=== PATIENT | female | born 1935 | race Caucasian/White ===

== ENCOUNTER 2016-10-13 16:49 | Emergency (ER) | payer OTHER ==
[~2016-10-13] VITALS: Ht 157.5 cm; Wt 48.6 kg
[~2016-10-13 16:49] MED LIST: DIOV160T60 PO; METO50TA PO; SYNT88TA PO
[2016-10-13 16:58] VITALS: BP 186/75; PULSE 61; RESP 16; TEMP 98.6; O2SAT 100
[2016-10-13] MEDS ORDERED: PAIN MED (17:12)
[2016-10-13] MEDS ORDERED: DIOV40TA PO (17:12)
[2016-10-13] MEDS ORDERED: NAUSEA MED (17:12)
[2016-10-13] MEDS ORDERED: SODIUM CHLOR 0.9% 1000 ML INJ 1,000 ML IV SCH (17:35)
--- NOTE | 2016-10-13 17:42 | PD ---
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 Ge, here today for evaluation of abdominal pain, abdominal distention, nausea, feeling bloated, decreased appetite. Symptoms started last night. She had one episode of vomiting last night. She cannot recall when her last bowel movement was. No history of abdominal surgeries. No fevers. No urinary symptoms. Pain is mainly epigastric, moderate, intermittently worse at times, no modifying factors. PFSH Past Medical History Hx Anticoagulant Therapy: Yes (81 MG ASA) Cancer: Yes (liver) Cardiovascular Problems: Yes (HTN) Chemotherapy: Yes (LIVER CA 2 WEEKS ) Diabetes: No Endocrine: Yes Genitourinary: Yes Hepatitis: No Hiatal Hernia: No Hypertension: Yes Immune Disorder: No Musculoskeletal: No Neurologic: No Psychiatric: No Reproductive: No Respiratory: No Thyroid Disease: Yes ?: Not Past Surgical History Abdominal Surgery: No AICD: No Cardiac Surgery: No Ear Surgery: No Endocrine Surgery: No Eye Surgery: No Genitourinary Surgery: No Gynecologic Surgery: No Joint Replacement: No Oral Surgery: No Pacemaker: No Thoracic Surgery: No Social History Alcohol Use: No Tobacco Use: No Substance Use: No Allergies-Medications (Allergen,Severity, Reaction): Coded Allergies: No Known Allergies (Unverified , 10/13/16) Reported Meds & Prescriptions Reported Meds & Active Scripts Active Reported [Pain Med] Unknown Dose [Nausea Med] Unknown Dose Diovan (Valsartan) 40 Mg Tab Unknown Dose PO BID Review of Systems Except as stated in HPI: all other systems reviewed are Neg Physical Exam Narrative GENERAL: Well-developed, well-nourished, comfortable, no acute distress. SKIN: Warm and dry. No rash. HEAD: Atraumatic. Normocephalic. EYES: Pupils equal and round. No scleral icterus. No injection or drainage. ENT: Mucous membranes pink and moist. CARDIOVASCULAR: Regular rate and rhythm. RESPIRATORY: No accessory muscle use. Clear to auscultation. Breath sounds equal bilaterally. GASTROINTESTINAL: Abdomen soft, nondistended. Mild epigastric tenderness without rebound or guarding. Rest of abdomen is soft and nontender. Normal bowel sounds. No hernias. MUSCULOSKELETAL: No obvious deformities. No clubbing. No cyanosis. No edema. NEUROLOGICAL: Awake and alert. No obvious cranial nerve deficits. Motor grossly within normal limits. Normal speech. PSYCHIATRIC: Appropriate mood and affect; insight and judgment normal. Data Data Last Documented VS Vital Signs Date Time Temp Pulse Resp B/P Pulse Ox O2 Delivery O2 Flow Rate FiO2 10/13/16 19:17 92 20 197/58 99 10/13/16 16:58 98.6 Orders Complete Blood Count With Diff (10/13/16 17:35) Comprehensive Metabolic Panel (10/13/16 17:35) Lipase (10/13/16 17:35) Lactic Acid (10/13/16 17:35) Prothrombin Time / Inr (Pt) (10/13/16 17:35) Act Partial Throm Time (Ptt) (10/13/16 17:35) Urinalysis - C+S If Indicated (10/13/16 17:35) Ct Abd/Pel W Iv Contrast(Rout) (10/13/16 17:35) Iv Access Insert/Monitor (10/13/16 17:35) Ecg Monitoring (10/13/16 17:35) Oximetry (10/13/16 17:35) Morphine Inj (Morphine Inj) (10/13/16 17:45) Sodium Chlor 0.9% 1000 Ml Inj (Ns 1000 M (10/13/16 17:35) Sodium Chloride 0.9% Flush (Ns Flush) (10/13/16 17:45) Electrocardiogram (10/13/16 17:35) Ckmb (Isoenzyme) Profile (10/13/16 17:35) Troponin I (10/13/16 17:35) Ondansetron Inj (Zofran Inj) (10/13/16 17:45) Pantoprazole Inj (Protonix Inj) (10/13/16 19:15) Al-Mag Hy-Si 40-40-4 Mg/Ml Liq (Mag-Al P (10/13/16 19:15) Lidocaine 2% Viscous (Xylocaine 2% Visco (10/13/16 19:15) Labs Laboratory Tests Test 10/13/16 10/13/16 17:55 18:51 White Blood Count 8.9 TH/MM3 Red Blood Count 3.53 MIL/MM3 Hemoglobin 10.4 GM/DL Hematocrit 32.2 % Mean Corpuscular Volume 91.2 FL Mean Corpuscular Hemoglobin 29.5 PG Mean Corpuscular Hemoglobin 32.3 % Concent Red Cell Distribution Width 13.3 % Platelet Count 95 TH/MM3 Mean Platelet Volume 9.0 FL Neutrophils (%) (Auto) 76.5 % Lymphocytes (%) (Auto) 19.5 % Monocytes (%) (Auto) 1.3 % Eosinophils (%) (Auto) 1.1 % Basophils (%) (Auto) 1.6 % Neutrophils # (Auto) 6.9 TH/MM3 Lymphocytes # (Auto) 1.7 TH/MM3 Monocytes # (Auto) 0.1 TH/MM3 Eosinophils # (Auto) 0.1 TH/MM3 Basophils # (Auto) 0.1 TH/MM3 CBC Comment AUTO DIFF Differential Comment AUTO DIFF CONFIRMED Platelet Estimate LOW Platelet Morphology Comment NORMAL Prothrombin Time 13.4 SEC Prothromb Time International 1.2 RATIO Ratio Activated Partial 25.0 SEC Thromboplast Time Lactic Acid Level 1.2 mmol/L Sodium Level 140 MEQ/L Potassium Level 4.0 MEQ/L Chloride Level 106 MEQ/L [facility] Medical Decision Making Medical Screen Exam Complete: Yes Emergency Medical Condition: Yes Medical Record Reviewed: Yes Interpretation(s) EKG: Sinus, rate 69, normal axis, normal intervals, Q waves in septal leads, no acute ischemic abnormality. Differential Diagnosis Gastritis, peptic ulcer disease, pancreatitis, hepatobiliary disease, progression of metastatic cancer, ACS, bowel obstruction, constipation Narrative Course Vital signs reviewed. CBC shows WBC 8.9, hemoglobin 10.4, hematocrit 32.2, platelets 95. Patient was given a dose of morphine and states she is feeling a lot better. Her abdominal exam is benign. There are no peritoneal signs. She would like to go home. She wants to leave AMA. She does not want to wait for the rest of her labs or CT. She understands that there are risks of leaving AMA including but not limited to and permanent disability. She has the capacity to make this decision. She was told that she can return to the emergency department at any time and should return should she have worsening symptoms or any other concerns. PMD follow-up this week. AMA: The risks of leaving against medical advice without further evaluation treatment were discussed with the patient. These risks include cardiac dysfunction, cardiac dysrhythmia, possible heart attack, possible stroke or . The patient indicated understanding of these risks and appeared to have the capacity to make this decision. Diagnosis Primary Impression: Abdominal pain Qualified Code: R10.13 - Epigastric pain Additional Impression: Left against medical advice Referrals: Primary Care Physician 3 days Additional Instructions: Follow-up with your primary care physician in the next 1-2 days. Return to the emergency room if worsening symptoms or any other concerns. Disposition: 07 AGAINST MEDICAL ADVICE Condition: Stable Kun Mott MD Oct 13, 2016 17:42
[2016-10-13] MEDS ORDERED: MORPHINE SULFATE 4 MG/ML INJ IV PUSH ONE (17:45)
[2016-10-13] MEDS ORDERED: ONDANSETRON HCL 4 MG/2 ML VIAL IV PUSH ONE (17:45)
[2016-10-13] MEDS ORDERED: SODIUM CHLORIDE 0.9% FLUSH 5 ML FLUSH IVF PRN (17:45)
[2016-10-13 18:04] VITALS: O2SAT 97
[2016-10-13 18:10] LABS: AUTOMATED NEUTROPHIL # 6.9 TH/MM3 (1.8-7.7); BASOPHIL # 0.1 TH/MM3 (0-0.2); BASOPHIL % 1.6 % (0.0-2.0); EOSINOPHIL # 0.1 TH/MM3 (0-0.4); EOSINOPHIL % 1.1 % (0.0-4.0); HEMATOCRIT 32.2 % (35.0-46.0); LYMPH % 19.5 % (9.0-44.0); LYMPHOCYTE # 1.7 TH/MM3 (1.0-4.8); MEAN CELL VOLUME 91.2 FL (80.0-100.0); MEAN CORPUSCULAR HEMOGLOBIN 29.5 PG (27.0-34.0); MEAN CORPUSCULAR HGB CONC 32.3 % (32.0-36.0); MONO % 1.3 % (0.0-8.0); NEUT % 76.5 % (16.0-70.0); PLATELET COUNT 95 TH/MM3 (150-450); RED BLOOD COUNT 3.53 MIL/MM3 (4.00-5.30); RED CELL DISTRIBUTION WIDTH 13.3 % (11.6-17.2); WHITE BLOOD COUNT 8.9 TH/MM3 (4.0-11.0)
[2016-10-13 18:13] LABS: HEMO FLAGS AUTO DIFF
[2016-10-13 18:18] VITALS: BP 203/65; PULSE 62; RESP 20; O2SAT 96
[2016-10-13 18:26] LABS: INTERNATIONAL NORMALIZED RATIO 1.2 RATIO; PROTHROMBIN TIME - PATIENT 13.4 SEC (9.8-11.6)
[2016-10-13 18:32] LABS: PLATELET ESTIMATE SMEAR LOW (NORMAL); PLATELET MORPHOLOGY NORMAL (NORMAL); SCAN/DIFF AUTO DIFF CONFIRMED
[2016-10-13] MEDS ORDERED: LIDOCAINE VISCOUS 2% SOLN 15 ML UDC PO ONE (19:15)
[2016-10-13] MEDS ORDERED: ALUMINUM/MAGNESIUM/SIMETH 30 ML CUP PO ONE (19:15)
[2016-10-13] MEDS ORDERED: PANTOPRAZOLE SODIUM 40 MG VIAL IVP ONE (19:15)
[2016-10-13 19:17] VITALS: BP 197/58; PULSE 92; RESP 20; O2SAT 99
[2016-10-13 19:25] LABS: CHLORIDE 106 MEQ/L (98-107); SODIUM (NA) 140 MEQ/L (136-145)
[2016-10-13 19:30] LABS: ANION GAP 11 MEQ/L (5-15); BICARBONATE 23.2 MEQ/L (21.0-32.0); BLOOD UREA NITROGEN 26 MG/DL (7-18)
[2016-10-13 19:33] LABS: ALT (GPT) 27 U/L (10-53); AST (GOT) 39 U/L (15-37); GLOMERULAR FILTRATION RATE 64 ML/MIN (>89)
[2016-10-13 19:34] LABS: TOTAL BILIRUBIN ADULT 1.3 MG/DL (0.2-1.0)
[2016-10-13 19:35] LABS: ALKALINE PHOSPHATASE 153 U/L (45-117)
[2016-10-13 19:45] LABS: CREATINE KINASE 42 U/L (26-192)
--- NOTE | 2016-10-14 16:04 | EKG ---
Date Performed: 10/13/2016 Time Performed: 17:45:46 PTAGE: 81 years EKG: Sinus rhythm Possible septal infarct - age undetermined Clinical correlation is recommended Abnormal ECG NO PREVIOUS TRACING DOCTOR: Ben Jerome Interpretating Date/Time 10/14/2016 16:03:00
== END 2016-10-13 19:41 | disposition left against medical advice (07) ==
LOC: PHED 16:49
DX: R10.13 Epigastric pain (principal); C22.1 Intrahepatic bile duct carcinoma; I10 Essential (primary) hypertension; Z79.82 Long term (current) use of aspirin
CPT/HCPCS: 82550; 83605; 85025; 85610; 85730; 93005; 96361; 96374; 96375; 99284; C9113; J2270; J2405; J7030; 80053; 83690; 84484

== ENCOUNTER 2016-10-21 18:17 | Observation (INO) | payer OTHER, MEDICARE ==
[2016-10-21] VITALS (10 sets, daily range): BP systolic 139–219; BP diastolic 54–98; PULSE 85–112; RESP 16–19; TEMP 98.3–98.7; O2SAT 95–100
[~2016-10-21 18:17] MED LIST changes: -DIOV160T60 PO; +DIOV40TA PO; -METO50TA PO; +NAUSEA MED; +PAIN MED; -SYNT88TA PO
[2016-10-21] MEDS ORDERED: OXYC1CAP PO (18:53)
[2016-10-21] MEDS ORDERED: PROC10TA PO (18:53)
[2016-10-21] MEDS ORDERED: LEVO88TA2 PO (18:53)
[2016-10-21] MEDS ORDERED: DOCU100T9 PO (18:53)
[2016-10-21] MEDS ORDERED: OMEP20TA PO (18:53)
[2016-10-21] MEDS ORDERED: SODIUM CHLOR 0.9% 1000 ML INJ 1,000 ML IV SCH ×2 (19:09→21:00)
[2016-10-21] MEDS ORDERED: SODIUM CHLORIDE 0.9% FLUSH 5 ML FLUSH IVF PRN (19:15)
--- NOTE | 2016-10-21 19:18 | PD ---
HPI Chief Complaint: Altered Mental Status Time Seen by Provider: 19:04 Travel History International Travel<30 days: No Contact w/Intl Traveler<30days: No Traveled to known affect area: No History of Present Illness HPI The patient is an 81-year-old female that was brought in because of altered mental status. She is generally weak and confused and has not been eating today. She does have a history of stage IV cholangiocarcinoma and is on cisplatin and Gemzar. In the past, her belly room and has not been significantly elevated and she has not had a problem with hepatic encephalopathy. She cannot be relied on for history and the person that brought her and does not live with her and does not know if she has had any fever. She lives with a woman in her 30s who has 2 small children. PFSH Past Medical History Hx Anticoagulant Therapy: No Cancer: Yes (liver with mets) Cardiovascular Problems: Yes (HTN) Chemotherapy: Yes (LIVER CA ) Diabetes: No Endocrine: Yes Genitourinary: Yes Hepatitis: No Hiatal Hernia: No Hypertension: Yes Immune Disorder: No Implanted Vascular Access Dvce: Yes Musculoskeletal: No Neurologic: No Psychiatric: No Reproductive: No Respiratory: No Thyroid Disease: Yes Tetanus Vaccination: < 5 Years Influenza Vaccination: Yes ?: Not Past Surgical History Abdominal Surgery: No AICD: No Cardiac Surgery: No Ear Surgery: No Endocrine Surgery: No Eye Surgery: No Genitourinary Surgery: No Gynecologic Surgery: No Joint Replacement: No Oral Surgery: No Pacemaker: No Thoracic Surgery: No Social History Alcohol Use: No Tobacco Use: No Substance Use: No Allergies-Medications (Allergen,Severity, Reaction): Coded Allergies: No Known Allergies (Unverified , 10/21/16) Reported Meds & Prescriptions Reported Meds & Active Scripts Active Reported Prochlorperazine Maleate 10 Mg Tab 10 Mg PO Q6H PRN Docusate Sodium 100 Mg Tab 100 Mg PO BID Oxycodone (Oxycodone HCl) 5 Mg Cap 1-2 Mg PO Q4H PRN Omeprazole 20 Mg Tab 20 Mg PO DAILY Levothyroxine (Levothyroxine Sodium) 88 Mcg Tab 88 Mcg PO DAILY Review of Systems Except as stated in HPI: all other systems reviewed are Neg Physical Exam Narrative GENERAL: The patient is disoriented 3, cooperative but cannot really relied on for history. Her blood pressure is 219/89 but the rest of her vital signs are normal. She appears generally weak and confused. SKIN: Warm and dry. HEAD: Atraumatic. Normocephalic. EYES: Pupils equal and round. There is questionable scleral icterus. No injection or drainage. ENT: No nasal bleeding or discharge. Mucous membranes pink and moist. NECK: Trachea midline. No JVD. CARDIOVASCULAR: Regular rate and rhythm. No murmur appreciated. RESPIRATORY: No accessory muscle use. Clear to auscultation. Breath sounds equal bilaterally. GASTROINTESTINAL: Abdomen soft, non-tender, nondistended. Hepatic and splenic margins not palpable. MUSCULOSKELETAL: No obvious deformities. No clubbing. No cyanosis. No edema. NEUROLOGICAL: Awake and alert. No obvious cranial nerve deficits. Motor grossly within normal limits. Normal speech. PSYCHIATRIC: Appropriate mood and affect; insight and judgment fair because of confusion. Data Data Last Documented VS Vital Signs Date Time Temp Pulse Resp B/P Pulse Ox O2 Delivery O2 Flow Rate FiO2 10/21/16 21:38 Room Air 10/21/16 21:20 112 19 164/73 95 10/21/16 20:00 98.3 Orders Ammonia (10/21/16 19:09) Complete Blood Count With Diff (10/21/16 19:09) Comprehensive Metabolic Panel (10/21/16 19:09) Prothrombin Time / Inr (Pt) (10/21/16 19:09) Act Partial Throm Time (Ptt) (10/21/16 19:09) Troponin I (10/21/16 19:09) Thyroid Stimulating Hormone (10/21/16 19:09) Urinalysis - C+S If Indicated (10/21/16 19:09) Chest, Pa & Lat (10/21/16 19:09) Ct Brain W/O Iv Contrast(Rout) (10/21/16 19:09) Blood Glucose (10/21/16 19:09) Ecg Monitoring (10/21/16 19:09) Iv Access Insert/Monitor (10/21/16 19:09) Oximetry (10/21/16 19:09) Sodium Chloride 0.9% Flush (Ns Flush) (10/21/16 19:15) Sodium Chlor 0.9% 1000 Ml Inj (Ns 1000 M (10/21/16 19:09) Hydralazine Inj (Apresoline Inj) (10/21/16 19:45) Lactic Acid Sepsis Protocol (10/21/16 19:43) Blood Culture (10/21/16 19:43) Magnesium (Mg) (10/21/16 19:00) Sodium Chlor 0.9% 1000 Ml Inj (Ns 1000 M (10/21/16 21:00) Cath For Specimen (10/21/16 21:04) Place In Observation (10/21/16 ) Vital Signs (Adult) Q4H (10/21/16 22:23) Activity Oob With Assistance (10/21/16 22:23) Diet Regular Basic (10/22/16 Breakfast) Sodium Chlor 0.9% 1000 Ml Inj (Ns 1000 M (10/21/16 22:23) Sodium Chloride 0.9% Flush (Ns Flush) (10/21/16 22:30) Sodium Chloride 0.9% Flush (Ns Flush) (10/22/16 09:00) Ondansetron Inj (Zofran Inj) (10/21/16 22:30) Bisacodyl Supp (Dulcolax Supp) (10/21/16 22:30) Comprehensive Metabolic Panel (10/22/16 06:00) Complete Blood Count With Diff (10/22/16 06:00) Scd Bilateral/Knee High JAMAL.BID (10/21/16 22:23) Blaine Bilateral/Knee High JAMAL.QSHIFT (10/21/16 22:23) Acetaminophen (Tylenol) (10/21/16 22:30) Hydromorphone Pf Inj (Dilaudid Pf Inj) (10/21/16 22:30) Oxycodone (Roxicodone) (10/21/16 22:30) Consult Medical Oncology (10/21/16 ) Case Management Consult (10/21/16 ) Labs Laboratory Tests Test 10/21/16 10/21/16 19:00 19:50 White Blood Count 1.8 TH/MM3 Red Blood Count 3.34 MIL/MM3 Hemoglobin 10.1 GM/DL Hematocrit 30.4 % Mean Corpuscular Volume 91.0 FL Mean Corpuscular Hemoglobin 30.1 PG Mean Corpuscular Hemoglobin 33.1 % Concent Red Cell Distribution Width 12.8 % Platelet Count 48 TH/MM3 Mean Platelet Volume 8.5 FL Neutrophils (%) (Auto) 19.5 % Lymphocytes (%) (Auto) 68.8 % Monocytes (%) (Auto) 10.5 % Eosinophils (%) (Auto) 0.7 % Basophils (%) (Auto) 0.5 % Neutrophils # (Auto) 0.4 TH/MM3 Lymphocytes # (Auto) 1.2 TH/MM3 Monocytes # (Auto) 0.2 TH/MM3 Eosinophils # (Auto) 0.0 TH/MM3 Basophils # (Auto) 0.0 TH/MM3 CBC Comment AUTO DIFF Differential Total Cells 100 Counted Neutrophils % (Manual) 28 % Lymphocytes % 66 % Monocytes % 5 % Eosinophils % 1 % Neutrophils # (Manual) 0.5 TH/MM3 Differential Comment FINAL DIFF MANUAL Platelet Estimate LOW Platelet Morphology Comment NORMAL Red Cell Morphology Comment NORMAL Prothrombin Time 14.3 SEC Prothromb Time International 1.3 RATIO Ratio Activated Partial 24.8 SEC Thromboplast Time Sodium Level 139 MEQ/L Potassium Level 4.4 MEQ/L Chloride Level 106 MEQ/L Carbon Dioxide Level 24.4 MEQ/L Anion Gap 9 MEQ/L Blood Urea Nitrogen 20 MG/DL Creatinine 0.87 MG/DL Estimat Glomerular Filtration 62 ML/MIN Rate Random Glucose 124 MG/DL Calcium Level 9.1 MG/DL Magnesium Level 1.7 MG/DL Total Bilirubin 1.5 MG/DL Aspartate Amino Transf 33 U/L (AST/SGOT) Alanine Aminotransferase 29 U/L (ALT/SGPT) Alkaline Phosphatase 169 U/L Ammonia LESS THAN 10 MCMOL/L Troponin I 0.02 NG/ML Total Protein 7.1 GM/DL Albumin 3.0 GM/DL Thyroid Stimulating Hormone 3.580 uIU/ML 3rd Gen Lactic Acid Level 2.0 mmol/L [facility] Medical Decision Making Medical Screen Exam Complete: Yes Emergency Medical Condition: Yes Medical Record Reviewed: Yes Interpretation(s) The chest x-ray shows no acute abnormality. The CBC shows a white count of 1800 with 28% neutrophils. Absolute neutrophil count is slightly over 524. The platelet count is 48,000. The pro time is 14.3 with an INR 1.3 and a PTT of 24.8. The complete metabolic profile shows a bicarbonate of 24.4, GFR of 62 , total bilirubin of 1.5 with alkaline phosphatase of 169 and albumen of 3.0 but is otherwise unremarkable. The TSH is normal and the ammonia level is less than 10. The CT brain shows no acute disease. Differential Diagnosis Neutropenia, sepsis, electrolyte disorder, hypo-/hyperglycemia, anemia, hepatic encephalopathy, coagulopathy, intracranial mass/hemorrhage, renal insufficiency , hypertensive encephalopathy Narrative Course I discussed the patient with Dr. Ge, her oncologist, and he states that the patient has just been put on hospice. After we called hospice, hospice stated that the patient refused hospice. I then called Dr. Landry again and he states the patient should be admitted to the hospitalist service until they can sort this out. The hospice nurse came out here and needs to talk to the patient's sister. The patient's sister can meet with the patient tomorrow afternoon and then they can make a decision. The meantime the patient will be admitted to Dr. Marin of the [facility] service. Sepsis Criteria SIRS Criteria (2 or more): WBC > 23486, < 4000 or > 10% bands Physician Communication Physician Communication I discussed the patient with Dr. Aguiar multiple times as well as Dr. Marin and the hospice nurse. The patient will be admitted to Dr. Marin. Diagnosis Primary Impression: Altered mental status Additional Impressions: Generalized weakness Hospice care patient Admitting Information Admitting Physician Requests: Admit Yan Walker MD Oct 21, 2016 19:18
[2016-10-21 19:36] LABS: BASOPHIL % 0.5 % (0.0-2.0); EOSINOPHIL % 0.7 % (0.0-4.0); HEMATOCRIT 30.4 % (35.0-46.0); LYMPH % 68.8 % (9.0-44.0); LYMPHOCYTE # 1.2 TH/MM3 (1.0-4.8); MEAN CORPUSCULAR HEMOGLOBIN 30.1 PG (27.0-34.0); MEAN CORPUSCULAR HGB CONC 33.1 % (32.0-36.0); MONO % 10.5 % (0.0-8.0); NEUT % 19.5 % (16.0-70.0); PLATELET COUNT 48 TH/MM3 (150-450); RED BLOOD COUNT 3.34 MIL/MM3 (4.00-5.30); RED CELL DISTRIBUTION WIDTH 12.8 % (11.6-17.2); WHITE BLOOD COUNT 1.8 TH/MM3 (4.0-11.0)
[2016-10-21 19:41] LABS: HEMO FLAGS AUTO DIFF
[2016-10-21 19:42] LABS: AUTOMATED NEUTROPHIL # 0.4 TH/MM3 (1.8-7.7)
[2016-10-21 19:44] LABS: CHLORIDE 106 MEQ/L (98-107); POTASSIUM 4.4 MEQ/L (3.5-5.1); SODIUM (NA) 139 MEQ/L (136-145)
[2016-10-21] MEDS ORDERED: hydrALAZINE HCL 20 MG/ML VIAL IV PUSH ONE (19:45)
[2016-10-21 19:48] LABS: ANION GAP 9 MEQ/L (5-15); BICARBONATE 24.4 MEQ/L (21.0-32.0); BLOOD UREA NITROGEN 20 MG/DL (7-18)
[2016-10-21 19:49] LABS: APTT (PATIENT) 24.8 SEC (24.3-30.1); INTERNATIONAL NORMALIZED RATIO 1.3 RATIO; PROTHROMBIN TIME - PATIENT 14.3 SEC (9.8-11.6)
[2016-10-21 19:51] LABS: ALT (GPT) 29 U/L (10-53); AST (GOT) 33 U/L (15-37); GLOMERULAR FILTRATION RATE 62 ML/MIN (>89)
[2016-10-21 19:52] LABS: TOTAL BILIRUBIN ADULT 1.5 MG/DL (0.2-1.0)
[2016-10-21 19:54] LABS: ALKALINE PHOSPHATASE 169 U/L (45-117)
[2016-10-21 20:03] LABS: MAGNESIUM 1.7 MG/DL (1.5-2.5)
[2016-10-21 20:07] LABS: EOSINOPHILS 1 % (0-4); NEUTROPHIL # MANUAL DIFF 0.5 TH/MM3 (1.8-7.7); POLYS (SEG NEUTROPHILS) 28 % (16-70); WBC DIFF SAMPLE 100
[2016-10-21 20:08] LABS: PLATELET ESTIMATE SMEAR LOW (NORMAL); PLATELET MORPHOLOGY NORMAL (NORMAL); SCAN/DIFF FINAL DIFF MANUAL
--- NOTE | 2016-10-21 20:28 | RADHPO ---
EXAM DATE/TIME: 10/21/2016 20:09 [facility] COMPARISON: No previous studies available for comparison. INDICATIONS : Syncope MEDICAL HISTORY : Unknown SURGICAL HISTORY : Unknown ENCOUNTER: Initial ACUITY: 1 day PAIN SCORE: Non-responsive. LOCATION: Bilateral chest FINDINGS: There is a CT compatible [id number] in place from the right internal jugular approach with the tip overlying the right atrium. The heart size is normal. Lungs are free of focal consolidation. Ther e does appear to be a calcified granuloma in the right midlung. No effusion is seen. CONCLUSION: No acute abnormality is seen. Armond Gregorio MD on October 21, 2016 at 20:24 Board Certified Radiologist. This report was verified electronically.
--- NOTE | 2016-10-21 21:00 | RADHPO ---
EXAM DATE/TIME: 10/21/2016 20:36 [facility] COMPARISON: No previous studies available for comparison. INDICATIONS : Altered mental status. RADIATION DOSE: 55.38 CTDIvol (mGy) MEDICAL HISTORY : Hypertension. Metastatic liver disease. SURGICAL HISTORY : None. ENCOUNTER: Initial ACUITY: 1 day PAIN SCALE: 0/10 LOCATION: cranial TECHNIQUE: Multiple contiguous axial images were obtained of the head. Using automated exposure control and adj ustment of the mA and/or kV according to patient size, radiation dose was kept as low as reasonably a chievable to obtain optimal diagnostic quality images. FINDINGS: CEREBRUM: The ventricles are normal for age. No evidence of midline shift, mass lesion, hemorrhage or acute in farction. No extra-axial fluid collections are seen. POSTERIOR FOSSA: The cerebellum and brainstem are intact. The 4th ventricle is midline. The cerebellopontine angle i s unremarkable. EXTRACRANIAL: The visualized portion of the orbits is intact. SKULL: The calvaria is intact. No evidence of skull fracture. CONCLUSION: No acute disease. Armond Gregorio MD on October 21, 2016 at 20:58 Board Certified Radiologist. This report was verified electronically.
[2016-10-21] MEDS ORDERED: ONDANSETRON HCL 4 MG/2 ML VIAL IVP PRN (22:30)
[2016-10-21] MEDS ORDERED: BISACODYL 10 MG SUPP PR PRN (22:30)
[2016-10-21] MEDS ORDERED: ACETAMINOPHEN 325 MG TAB PO PRN (22:30)
[2016-10-21] MEDS ORDERED: SODIUM CHLORIDE 0.9% FLUSH 5 ML FLUSH FLUSH PRN (22:30)
[2016-10-21] MEDS ORDERED: HYDROmorphone HCL PF 1 MG/ML VIAL IV PRN (22:30)
[2016-10-21] MEDS: SODIUM CHLOR 0.9% 1000 ML INJ 1,000 ML IV SCH (23:00)
[2016-10-21 23:25] LABS: BLOOD, URINE NEG (NEG); GLUCOSE,URINE NEG (NEG); KETONE, URINE NEG (NEG); NITRITE,URINE NEG (NEG)
[2016-10-21 23:41] LABS: URINE COLOR YELLOW (YELLW/STRAW)
[2016-10-21 23:42] LABS: METHOD OF COLLECTION CLEAN CATCH
[2016-10-21 23:43] LABS: MUCUS URINE FEW /lpf (OCC); SQUAMOUS EPITHELIAL CELL URINE 0-5 /hpf (0-5)
[2016-10-21 23:44] LABS: COMMENT (UR) CULT NOT INDICATED; CULTURE IF INDICATED CULT NOT INDICATED; RBC, URINE 0-3 /hpf (0-3)
[2016-10-22] VITALS (9 sets, daily range): BP systolic 107–209; BP diastolic 39–77; PULSE 58–129; RESP 16–24; TEMP 97–99.6; O2SAT 95–100
[2016-10-22] MEDS: SODIUM CHLOR 0.9% 1000 ML INJ 1,000 ML IV SCH ×3 (01:21→23:12)
[2016-10-22 05:52] LABS: BASOPHIL % 0.3 % (0.0-2.0); EOSINOPHIL % 0.9 % (0.0-4.0); HEMATOCRIT 28.3 % (35.0-46.0); LYMPH % 69.7 % (9.0-44.0); LYMPHOCYTE # 1.4 TH/MM3 (1.0-4.8); MEAN CELL VOLUME 90.3 FL (80.0-100.0); MEAN CORPUSCULAR HEMOGLOBIN 29.1 PG (27.0-34.0); MEAN CORPUSCULAR HGB CONC 32.3 % (32.0-36.0); MONO % 15.4 % (0.0-8.0); NEUT % 13.7 % (16.0-70.0); PLATELET COUNT 64 TH/MM3 (150-450); RED BLOOD COUNT 3.14 MIL/MM3 (4.00-5.30); RED CELL DISTRIBUTION WIDTH 12.8 % (11.6-17.2); WHITE BLOOD COUNT 2.1 TH/MM3 (4.0-11.0)
[2016-10-22 06:00] LABS: HEMO FLAGS AUTO DIFF
[2016-10-22 06:01] LABS: AUTOMATED NEUTROPHIL # 0.3 TH/MM3 (1.8-7.7); CHLORIDE 110 MEQ/L (98-107); POTASSIUM 4.1 MEQ/L (3.5-5.1); SODIUM (NA) 143 MEQ/L (136-145)
[2016-10-22 06:05] LABS: ANION GAP 11 MEQ/L (5-15); BICARBONATE 22.5 MEQ/L (21.0-32.0); BLOOD UREA NITROGEN 18 MG/DL (7-18)
[2016-10-22 06:08] LABS: ALT (GPT) 22 U/L (10-53); AST (GOT) 31 U/L (15-37); GLOMERULAR FILTRATION RATE 71 ML/MIN (>89)
[2016-10-22 06:09] LABS: TOTAL BILIRUBIN ADULT 1.5 MG/DL (0.2-1.0)
[2016-10-22 06:11] LABS: ALKALINE PHOSPHATASE 146 U/L (45-117)
[2016-10-22] MEDS ORDERED: hydrALAZINE HCL 20 MG/ML VIAL IV PUSH ONE (07:00)
[2016-10-22 07:42] LABS: NEUTROPHIL # MANUAL DIFF 0.4 TH/MM3 (1.8-7.7); PLATELET ESTIMATE SMEAR LOW (NORMAL); PLATELET MORPHOLOGY NORMAL (NORMAL); POLYS (SEG NEUTROPHILS) 19 % (16-70); SCAN/DIFF FINAL DIFF MANUAL; WBC DIFF SAMPLE 100
[2016-10-22] MEDS: SODIUM CHLORIDE 0.9% FLUSH 5 ML FLUSH FLUSH SCH ×2 (09:00→21:30)
--- NOTE | 2016-10-22 15:40 | HHI.HP ---
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 Patient is being followed by hematology rather closely. It was indicated that hospice was consulted and the patient turned it down per hospice nurse. However patient presented to the hospital last evening because she was generally weak, confused and not eating. ER physician took rather exuberant amount of time calling family, oncologist, hospice and is included that patient would be admitted overnight with hospice consultation for further evaluation recommendations. Patient was seen today and patient is nonverbal. Does not participate in examination. Oncology has evaluated the patient and indicates that patient has a rather metastatic burden with fairly advanced disease. Oncologist discussed with the family the patient's situation. The family does not want to proceed to receive any further treatment. Best option would refer to palliative care/ hospice. Hospice consult has been. Awaiting for hospice evaluation at 4 PM today for further management. Nursing staff indicates that the patient has had urinary retention of at least 900 cc of urine. Straight catheter has been ordered, however patient is quite aggressive and combative and not allowing nursing staff to perform straight catheter. Will defer to oncologist, hospice care for management. Review of Systems ROS Limitations: Clinical Condition, Altered Mental Status Past Family Social History Past Medical History Hypertension Hypothyroidism Poorly differentiated stage IV cholangiocarcinoma Past Surgical History Liver biopsy Colonoscopy Reported Medications Reported Meds & Active Scripts Active Reported Prochlorperazine Maleate 10 Mg Tab 10 Mg PO Q6H PRN Docusate Sodium 100 Mg Tab 100 Mg PO BID Oxycodone (Oxycodone HCl) 5 Mg Cap 1-2 Mg PO Q4H PRN Omeprazole 20 Mg Tab 20 Mg PO DAILY Levothyroxine (Levothyroxine Sodium) 88 Mcg Tab 88 Mcg PO DAILY Allergies: Coded Allergies: No Known Allergies (Unverified , 10/21/16) Family History Records reviewed and mother at 92, father at 62. No indication of any pertinent medical history Social History Records indicate any tobacco, alcohol or illicit drugs Physical Exam Vital Signs Vital Signs Date Time Temp Pulse Resp B/P Pulse Ox O2 Delivery O2 Flow Rate FiO2 10/22/16 12:00 99.0 100 20 150/77 95 10/22/16 08:00 98.4 121 20 149/58 95 10/22/16 07:27 104 24 107/54 10/22/16 06:49 110 24 184/49 10/22/16 04:00 98.1 120 20 174/58 99 10/22/16 01:30 100 20 145/39 99 10/22/16 00:20 97.6 110 16 179/55 99 10/21/16 23:37 104 18 139/54 95 Room Air 10/21/16 21:38 Room Air 10/21/16 21:20 112 19 164/73 95 Room Air 10/21/16 20:15 92 18 164/56 99 Room Air 10/21/16 20:00 98.3 10/21/16 19:55 89 18 177/85 98 Room Air 10/21/16 19:50 87 18 198/65 99 Room Air 10/21/16 19:33 Room Air 10/21/16 19:32 86 18 199/98 99 Room Air 10/21/16 19:16 85 19 212/94 97 Room Air 10/21/16 19:05 Room Air 10/21/16 18:32 16 100 Room Air 10/21/16 18:20 219/73 10/21/16 18:19 98.7 89 16 100 Physical Exam GENERAL: Well-developed, well-nourished, in no acute distress. Awake, however not responding to questions. Not talking HEENT: Head is normocephalic without any lesions or masses noted. Facial features are symmetric. Eyes: Pupils equal round reactive to light. Extraocular muscles are intact. Conjunctivae were clear. Oropharyngeal: Pharynx without any erythema edema. Tongue is midline without deviation. Patient does have excoriation on lower lip CARDIAC: Regular rhythm, regular rate. S1/S2 are heard. No murmurs gallops or rubs. LUNGS: Clear to auscultation bilaterally. No wheeze, rhonchi or rales. No use of accessory muscles on inspiration or expiration. ABDOMEN: Soft, nontender. Nondistended. Bowel sounds heard in all 4 quadrants. No organomegaly or masses. Negative rebound, negative guarding EXTREMITIES: No edema, pulses are equal bilaterally. No cyanosis or clubbing NEUROLOGY: Mood and affect appear appropriate. Cranial nerves II through XII grossly intact. Muscle strength 5/5 in upper and lower extremities bilaterally. Deep tendon reflexes are 2+ in upper and lower extremities bilaterally. Laboratory Laboratory Tests Test 10/21/16 10/21/16 10/21/16 10/22/16 19:00 19:50 23:07 05:10 White Blood Count 1.8 2.1 Red Blood Count 3.34 3.14 Hemoglobin 10.1 9.1 Hematocrit 30.4 28.3 Mean Corpuscular Volume 91.0 90.3 Mean Corpuscular Hemoglobin 30.1 29.1 Mean Corpuscular Hemoglobin 33.1 32.3 Concent Red Cell Distribution Width 12.8 12.8 Platelet Count 48 64 Mean Platelet Volume 8.5 9.1 Neutrophils (%) (Auto) 19.5 13.7 Lymphocytes (%) (Auto) 68.8 69.7 Monocytes (%) (Auto) 10.5 15.4 Eosinophils (%) (Auto) 0.7 0.9 Basophils (%) (Auto) 0.5 0.3 Neutrophils # (Auto) 0.4 0.3 Lymphocytes # (Auto) 1.2 1.4 Monocytes # (Auto) 0.2 0.3 Eosinophils # (Auto) 0.0 0.0 Basophils # (Auto) 0.0 0.0 CBC Comment AUTO DIFF AUTO DIFF Differential Total Cells 100 100 Counted Neutrophils % (Manual) 28 19 Lymphocytes % 66 69 Monocytes % 5 12 Eosinophils % 1 Neutrophils # (Manual) 0.5 0.4 Differential Comment FINAL DIFF FINAL DIFF MANUAL MANUAL Platelet Estimate LOW LOW Platelet Morphology Comment NORMAL NORMAL Red Cell Morphology Comment NORMAL Prothrombin Time 14.3 Prothromb Time International 1.3 Ratio Activated Partial 24.8 Thromboplast Time Sodium Level 139 143 Potassium Level 4.4 4.1 Chloride Level 106 110 Carbon Dioxide Level 24.4 22.5 Anion Gap 9 11 Blood Urea Nitrogen 20 18 Creatinine 0.87 0.78 Estimat Glomerular Filtration 62 71 Rate Random Glucose 124 96 Calcium Level 9.1 8.5 Magnesium Level 1.7 Total Bilirubin 1.5 1.5 Aspartate Amino Transf 33 31 (AST/SGOT) Alanine Aminotransferase 29 22 (ALT/SGPT) Alkaline Phosphatase 169 146 Ammonia LESS THAN 10 Troponin I 0.02 Total Protein 7.1 6.0 Albumin 3.0 2.6 Thyroid Stimulating Hormone 3.580 3rd Gen Lactic Acid Level 2.0 Urine Collection Type CLEAN CATCH Urine Color YELLOW Urine Turbidity CLEAR Urine pH 6.0 Urine Specific [place] 1.015 Urine Protein NEG Urine Glucose (UA) NEG Urine Ketones NEG Urine Occult Blood NEG Urine Nitrite NEG Urine Bilirubin NEG Urine Leukocyte Esterase NEG Urine RBC 0-3 Urine Squamous Epithelial 0-5 Cells Urine Mucus FEW Microscopic Urinalysis Comment CULT NOT INDICATED Date/Time Procedure Status Source Growth 10/21/16 19:50 Aerobic Blood Culture - Preliminary Resulted Blood Peripheral NO GROWTH IN 1 DAY 10/21/16 19:50 Anaerobic Blood Culture - Preliminary Resulted Blood Peripheral NO GROWTH IN 1 DAY Result Diagram: 10/22/16 0510 10/22/16 0510 Imaging Last Impressions Head CT [id number]/21/161908 Signed Impressions: Service Date/Time: Friday, October 21, 2016 20:36 - CONCLUSION: No acute disease. Armond Gregorio MD Chest X-Ray [id number]/21/[id number] Signed Impressions: Service Date/Time: Friday, October 21, 2016 20:09 - CONCLUSION: No acute abnormality is seen. Armond Gregorio MD Assessment and Plan Assessment and Plan Altered mental status, unknown etiology could be progression of metastatic disease Patient is afebrile, ammonia level normal, liver enzymes relatively normal Patient is neutropenic, patient at risk for possible encephalitis, awaiting hospice evaluation prior to workup No signs of infection. Urinalysis is clear, chest x-ray is clear CT scan of brain is without any acute abnormalities Neutropenia Likely secondary to chemotherapy Continue follow CBC Oncology to address Urinary retention Patient refusing to have medical staff do straight catheter or place Nelson catheter Bladder scan does show 900 cc of urine Poorly differentiated stage IV cholangiocarcinoma currently on chemotherapy with cisplatin and Gemzar Records indicate hospice has been consulted, however, appears that patient may have refused it ER physician and had significant conversation with family, hospice, oncologist to plan on meeting with hospice again this afternoon for further goals of care Hypertension Apresoline as needed Hypothyroidism Continue home medications DVT prevention Sequential compression devices Written by Geovanny Walker PA-C, acting as scribe for Dr. Timmons on 10/22/16 at 1325. The documentation accurately reflects the work and decisions performed face-to- face by Dr. Timmons on 10/22/16 at 1325. Discharge disposition Discharge to hospice care if accepted and agreed upon by family Activity: Ad mitzy. Diet: Per hospice Medications per hospice Problem Qualifiers (1) Altered mental status: Qualified Code: R41.82 - Altered mental status, unspecified altered mental status type (2) Neutropenia: Qualified Code: D70.1 - Chemotherapy-induced neutropenia Geovanny Walker Oct 22, 2016 15:40
--- NOTE | 2016-10-22 15:58 | HHI.DCPOC ---
Discharge Care Plan Diagnosis: (1) Altered mental status Goals to Promote Your Health * To prevent worsening of your condition and complications * To maintain your health at the optimal level Directions to Meet Your Goals Take your medications as prescribed Follow your dietary instruction Follow activity as directed Keep your appointments as scheduled Take your immunizations and boosters as scheduled If your symptoms worsen call your PCP, if no PCP go to Urgent Care Center or Emergency Room Smoking is Dangerous to Your Health. Avoid second hand smoke Call the 24-hour hour crisis hotline for domestic abuse at Geovanny Walker Oct 22, 2016 15:58
[2016-10-22] MEDS: LORazepam 2 MG/ML VIAL IV PUSH PRN (18:08)
[2016-10-22] MEDS: hydrALAZINE HCL 20 MG/ML VIAL IV PUSH PRN (23:12)
[2016-10-23] VITALS: BP 209/93; PULSE 126; RESP 20; TEMP 98.6; O2SAT 100
[2016-10-23 01:00] VITALS: BP 180/76; PULSE 100; RESP 16; O2SAT 99
[2016-10-23 04:30] VITALS: BP 198/66; PULSE 109; RESP 16; TEMP 97.9; O2SAT 99
[2016-10-23] MEDS: hydrALAZINE HCL 20 MG/ML VIAL IV PUSH PRN (04:58)
[2016-10-23 05:00] VITALS: BP 177/61; PULSE 100; RESP 16; O2SAT 98
[2016-10-23 05:20] VITALS: BP 147/73; PULSE 108; RESP 20; O2SAT 98
[2016-10-23] MEDS ORDERED: LEVOTHYROXINE SODIUM 88 MCG TAB PO SCH (06:00)
[2016-10-23 08:00] VITALS: BP 160/83; PULSE 78; RESP 18; TEMP 97
[2016-10-23] MEDS: SODIUM CHLORIDE 0.9% FLUSH 5 ML FLUSH FLUSH SCH (09:00)
[2016-10-23] MEDS ORDERED: PANTOPRAZOLE SOD 20 MG DELAYED RELEASE TAB PO SCH (09:00)
--- NOTE | 2016-10-23 11:13 | HHI.PR ---
Subjective Remarks Patient confused, disoriented. Nelson was placed at 6 p.m. yesterday. Hospice has seen patient and she will go to the hospice care center today. D/w [facility] hospice nurse. Objective Vitals Vital Signs Date Time Temp Pulse Resp B/P Pulse Ox O2 Delivery O2 Flow Rate FiO2 10/23/16 08:00 97.0 78 18 160/83 10/23/16 05:20 108 20 147/73 98 10/23/16 05:00 100 16 177/61 98 10/23/16 04:30 97.9 109 16 198/66 99 10/23/16 01:00 100 16 180/76 99 10/23/16 00:00 98.6 126 20 209/93 100 10/22/16 20:00 97.7 129 20 209/75 100 10/22/16 16:00 99.6 91 20 180/60 95 10/22/16 12:00 99.0 100 20 150/77 95 I/O 10/22/16 10/22/16 10/22/16 10/23/16 10/23/16 10/23/16 07:00 15:00 23:00 07:00 15:00 23:00 Intake Total 510 ml 0 ml 556 ml Output Total 0 ml 525 ml 110 ml Balance 510 ml -525 ml 446 ml Intake Oral 0 ml 0 ml IV Total 510 ml 556 ml Output Urine Total 0 ml 525 ml 110 ml # Voids 0 # Bowel Movements 0 0 0 Result Diagram: 10/22/16 0510 10/22/16 0510 Objective Remarks GENERAL: Well-nourished, well-developed elderly CF patient. SKIN: Warm and dry. HEAD: Normocephalic. EYES: No scleral icterus. No injection or drainage. NECK: Supple, trachea midline. No JVD or lymphadenopathy. CARDIOVASCULAR: Regular rate and rhythm without murmurs, gallops, or rubs. RESPIRATORY: Breath sounds equal bilaterally. No accessory muscle use. GASTROINTESTINAL: Abdomen soft, non-tender, nondistended. 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 Urinalysis is clear, chest x-ray is clear CT scan of brain is without any acute abnormalities Neutropenia Likely secondary to chemotherapy Urinary retention -Nelson placed yesterday Poorly differentiated stage IV cholangiocarcinoma currently on chemotherapy with cisplatin and Gemzar, not a candidate for further chemo as per her oncologist Patient/family have elected for her to be discharged with hospice today. Discharge Planning To hospice today Problem Qualifiers (1) Altered mental status: Qualified Code: R41.82 - Altered mental status, unspecified altered mental status type (2) Neutropenia: Qualified Code: D70.1 - Chemotherapy-induced neutropenia Abigail Timmons MD Oct 23, 2016 11:13
[2016-10-23] MEDS: LORazepam 2 MG/ML VIAL IV PUSH PRN ×2 (13:00)
[2016-10-23] MEDS: SODIUM CHLOR 0.9% 1000 ML INJ 1,000 ML IV SCH (13:03)
== END 2016-10-23 14:49 | disposition home or self-care (01) ==
LOC: PHED 18:17 → PHEDA 22:33 → INTOOBSV 22:33 → PHICU 10-22 00:15 → PH3A 10-22 07:57
PROVIDERS: ADMIT Family Medicine; ATTEND Family Medicine
DX: R41.82 Altered mental status, unspecified (principal); T45.1X5A Adverse effect of antineoplastic and immunosuppressive drugs, initial encounter; D70.1 Agranulocytosis secondary to cancer chemotherapy; C22.1 Intrahepatic bile duct carcinoma; I10 Essential (primary) hypertension; E03.9 Hypothyroidism, unspecified; R33.9 Retention of urine, unspecified
CPT/HCPCS: 70450; 71020; 80053; 81001; 82140; 83605; 83735; 84443; 84484; 85007; 85027; 85610; 85730; 87040; 96361; 96374; 99285; G0378; J0360; J1170; J2060; J7030; P9612